=== PATIENT | male | born 1945 ===

== ENCOUNTER 2021-02-11 08:30 | Observation (INO) ==
[~2021-02-11 08:30] MED LIST: Buffered Lidocaine 1% SYRIN 1 ml INTRADERM ONE; DiMENhydriNATE IV 50 mg/ml 1 ml VIAL IV PUSH PRN; EPHEDrine (Pressors) 50 MG/ML VIAL IV SLOW PU SCH; Lactated Ringers 1000 ml BAG 1,000 ML IV SCH; Lidocaine 2% PF 5 ML VIAL INJ SCH; Midazolam 2 mg/2 ml VIAL 1 mg/ml 2 ml VIAL (2 mg) IV SLOW PU SCH; Naloxone 0.4 mg VIAL 0.4 mg/ml 1 ml VIAL IV PRN; Phenylephrine IV 10 MG/ML 1 ml VIAL IV SCH; Propofol 10 MG/ML 20 ML BTL IV SCH; Propofol 10 MG/ML 50 ML BTL IV SCH; fentaNYL 100 mcg/2 ml 50 MCG/ML VIAL IV PRN
[2021-02-11 08:59] LABS: INR 1.09 (0.86-1.15)
[2021-02-11] MEDS ORDERED: ceFAZolin 2 GM in NS PREMIX 2 GM/100 ML BAG IVPB ONE (09:16)
[2021-02-11] MEDS ORDERED: Dexmedetomidine 200 mcg/2 ml 2 ml VIAL (200 mcg) ONE (13:07)
[2021-02-11] MEDS ORDERED: Succinylcholine 200 mg VIAL 20 mg/ml 10 ml VIAL (200 mg) ONE (13:07)
[2021-02-11] MEDS ORDERED: Ondansetron 4 mg VIAL 2 MG/ML 2 ml VIAL IV PRN (13:21)
[2021-02-11] MEDS ORDERED: Metoclopramide 5 MG/ML VIAL (10 mg) IV SLOW PU PRN (13:24)
[2021-02-11] MEDS ORDERED: Warfarin per PHARMACY **NOTE FOLLOW UP SCH (14:00)
[2021-02-11] MEDS: Cefepime 2 GM in Dextrose 2 GM/50 ML BAG IV SCH (20:39)
[2021-02-12 06:51] LABS: ABS Basophils 0.1 10^3/ul (0-0.2); ABS Lymphocytes 1.2 10^3/ul (1.0-4.8); ABS Monocytes 0.6 10^3/ul (0-0.8); ABS Neutrophils 8.8 10^3/ul (1.5-7.7); Eosinophil % 0.3 %; Hematocrit 38 % (42-52); Hemoglobin 13.5 g/dL (14.0-18.0); Lymphocyte % 10.9 %; Mean Corpuscular HGB Conc 36 g/dL (31-36); Mean Corpuscular Hemoglobin 30 pg (27-31); Mean Corpuscular Volume 83 fL (80-94); Mean Platelet Volume 8.2 fL (7.4-10.4); Nucleated Red Blood Cells % 0.1; Platelet Count 112 10^3/uL (150-450); Red Blood Count 4.54 10^6 /uL (4.18-5.48); Red Cell Distribution Width 14 % (10-15); White Blood Count 10.7 10^3/uL (3.5-10.8)
[2021-02-12 06:54] LABS: INR 1.26 (0.86-1.15)
[2021-02-12 07:09] LABS: Calcium 8.5 mg/dL (8.6-10.3); EGFR African American 93.8 (>60); EGFR Non-African American 77.5 (>60); Potassium 3.7 mmol/L (3.5-5.0)
[2021-02-12] MEDS: Cefepime 2 GM in Dextrose 2 GM/50 ML BAG IV SCH (08:14)
[2021-02-12 11:38] VITALS: BP 118/52
== END 2021-02-12 16:55 | disposition home or self-care (01) ==
LOC: AA 08:30 → INTOOBSV 08:30 → MED 13:21
PROVIDERS: ADMIT Orthopaedic Surgery Adult Reconstructive Orthopaedic Surgery; ATTEND Orthopaedic Surgery Adult Reconstructive Orthopaedic Surgery

== ENCOUNTER 2021-03-04 06:08 | Observation (INO) ==
[~2021-03-04 06:08] MED LIST changes: -DiMENhydriNATE IV 50 mg/ml 1 ml VIAL IV PUSH PRN; -EPHEDrine (Pressors) 50 MG/ML VIAL IV SLOW PU SCH; -Lidocaine 2% PF 5 ML VIAL INJ SCH; -Midazolam 2 mg/2 ml VIAL 1 mg/ml 2 ml VIAL (2 mg) IV SLOW PU SCH; -Naloxone 0.4 mg VIAL 0.4 mg/ml 1 ml VIAL IV PRN; -Phenylephrine IV 10 MG/ML 1 ml VIAL IV SCH; -Propofol 10 MG/ML 20 ML BTL IV SCH; -Propofol 10 MG/ML 50 ML BTL IV SCH; -fentaNYL 100 mcg/2 ml 50 MCG/ML VIAL IV PRN
[2021-03-04] MEDS ORDERED: ceFAZolin 2 GM in NS PREMIX 2 GM/100 ML BAG IVPB ONE (06:22)
[2021-03-04] MEDS ORDERED: Buffered Lidocaine 1% SYRIN 1 ml INTRADERM ONE (06:22)
[2021-03-04] MEDS ORDERED: fentaNYL 250 mcg/5 ml 50 MCG/ML 5 ml VIAL (250 MCG) ONE (07:06)
[2021-03-04] MEDS ORDERED: Midazolam 2 mg/2 ml VIAL 1 mg/ml 2 ml VIAL (2 mg) ONE (07:06)
[2021-03-04] MEDS ORDERED: Lidocaine 2% PF 5 ML VIAL ONE (07:07)
[2021-03-04] MEDS ORDERED: Rocuronium 50 mg VIAL 10 mg/ml 5 ml VIAL (50 mg) ONE (07:07)
[2021-03-04] MEDS ORDERED: Dexamethasone IV 4 MG/ML VIAL 1 ml VIAL ONE (07:07)
[2021-03-04] MEDS ORDERED: Ondansetron 4 mg VIAL 2 MG/ML 2 ml VIAL ONE (07:07)
[2021-03-04] MEDS ORDERED: Propofol 10 MG/ML 20 ML BTL ONE (07:07)
[2021-03-04] MEDS ORDERED: ROPIVACAINE 5 MG/ML 30 ML BTL (0.5%) ONE (07:21)
[2021-03-04 07:23] LABS: INR 1.12 (0.86-1.15)
[2021-03-04] MEDS ORDERED: Phenylephrine IV 10 MG/ML 1 ml VIAL ONE (08:14)
[2021-03-04] MEDS ORDERED: HYDROmorphone 1 MG/1 ML SYRINGE ONE (08:18)
[2021-03-04] MEDS ORDERED: HYDROmorphone 1 MG/1 ML SYRINGE IV PRN (08:33)
[2021-03-04] MEDS ORDERED: DiMENhydriNATE IV 50 mg/ml 1 ml VIAL IV PUSH PRN (08:33)
[2021-03-04] MEDS ORDERED: Naloxone 0.4 mg VIAL 0.4 mg/ml 1 ml VIAL IV PRN (08:33)
[2021-03-04] MEDS ORDERED: Lactulose 30 ml UDC PO PRN (08:48)
[2021-03-04] MEDS ORDERED: Morphine 2 MG/ML SYRINGE IV PRN (08:48)
[2021-03-04] MEDS ORDERED: Magnesium Hydroxide LIQ 30 ML UDC PO PRN (08:48)
[2021-03-04] MEDS ORDERED: diPHENhydraMINE IV 50 MG/ML 1 ml VIAL (BENADRYL) IV PRN (08:48)
[2021-03-04] MEDS ORDERED: Prochlorperazine 5 mg/ml 2 ml VIAL (10 mg) IV PRN (09:00)
[2021-03-04] MEDS ORDERED: Acetaminophen IV 1 GM/100ML 100 ML IV ONE (09:26)
[2021-03-04] MEDS: Lactated Ringers 1000 ml BAG 1,000 ML IV SCH ×2 (11:30→20:48)
[2021-03-04] MEDS: Vitamin THERAPEUTIC TAB PO SCH (12:42)
[2021-03-04] MEDS: Magnesium Hydroxide LIQ 30 ML UDC PO SCH ×2 (12:42→20:47)
[2021-03-04] MEDS: ceFAZolin 1 GM ADVAN 1 GM in NS 0.9% 50 ML 50 ML IVPB SCH (16:32)
[2021-03-04] MEDS ORDERED: Lisinopril/HCTZ 20/12.5 TB(NF) PO SCH (21:00)
[2021-03-04] MEDS ORDERED: Enoxaparin 40 MG/0.4 ML SYR SUBCUT ONE (21:00)
[2021-03-05] MEDS: ceFAZolin 1 GM ADVAN 1 GM in NS 0.9% 50 ML 50 ML IVPB SCH ×2 (01:02→08:01)
[2021-03-05 06:14] LABS: Hematocrit 27 % (42-52); Hemoglobin 9.7 g/dL (14.0-18.0); Mean Platelet Volume 8.4 fL (7.4-10.4); Platelet Count 148 10^3/uL (150-450)
[2021-03-05 06:24] LABS: INR 1.28 (0.86-1.15)
[2021-03-05 06:38] LABS: Calcium 7.9 mg/dL (8.6-10.3); EGFR African American 101.1 (>60); EGFR Non-African American 83.6 (>60); Potassium 3.9 mmol/L (3.5-5.0)
[2021-03-05] MEDS: Vitamin THERAPEUTIC TAB PO SCH (08:13)
[2021-03-05] MEDS: Magnesium Hydroxide LIQ 30 ML UDC PO SCH (08:14)
[2021-03-05] MEDS ORDERED: Enoxaparin 80 MG/0.8 ML SYR SUBCUT SCH (09:00)
[2021-03-05 12:44] VITALS: BP 96/44
== END 2021-03-05 17:00 | disposition home or self-care (01) ==
LOC: SSU 06:08 → OR 06:08
PROVIDERS: ADMIT Orthopaedic Surgery Adult Reconstructive Orthopaedic Surgery; ATTEND Orthopaedic Surgery Adult Reconstructive Orthopaedic Surgery